=== PATIENT | female | born 1940 | race Caucasian/White ===

== ENCOUNTER 2020-08-20 01:55 | Observation (INO) ==
[2020-08-20 02:38] LABS: Basophils # 0.1 K/mcL (0.0-0.2); Basophils % 0.2 %; Eosinophils % 0.1 %; Hematocrit 37.3 % (35.3-44.9); Hemoglobin 12.2 g/dL (11.5-15.4); Immature Granulocytes % 1.2 % (0-4); Lymphocytes # 5.3 K/mcL (0.6-4.6); Lymphocytes % 24.5 %; Mean Corpuscular HGB Conc 32.7 g/dL (31.6-35.5); Mean Corpuscular Hemoglobin 31.6 pg (28.0-33.3); Mean Corpuscular Volume 96.6 fL (83.0-100.0); Mean Platelet Volume 10.1 fL (9.4-12.4); Monocytes # 2.2 K/mcL (0.0-1.3); Monocytes % 10.1 %; Neutrophils # 13.7 K/mcL (1.6-8.9); Platelet Count 175 K/mcL (140-400); Red Blood Count 3.86 M/mcL (3.82-4.97); Red Cell Distribution Width 12.5 % (11.5-14.5); Segmented Neutrophils % 63.9 %; White Blood Count 21.5 K/mcL (4.3-11.1)
[2020-08-20 02:58] LABS: Alanine Aminotransferase 67 Units/L (7-52); Albumin 4.1 g/dL (3.5-5.7); Albumin/Globulin Ratio 1.3 (1.1-2.2); Alkaline Phosphatase 121 Units/L (34-104); Aspartate Amino Transferase 27 Units/L (13-39); BUN/Creatinine Ratio 31 (6-26); Bilirubin,Total 0.4 mg/dL (0.3-1.0); Blood Urea Nitrogen 35 mg/dL (8-23); Calcium 9.8 mg/dL (8.6-10.3); Carbon Dioxide 25 mEq/L (23-29); Chloride 104 mEq/L (98-107); Globulin 3.1 g/dL (2.4-3.5); Glucose 92 mg/dL (70-105); Osmolality,Calculated 290 (280-300); Potassium 4.6 mEq/L (3.5-5.1); Sodium 136 mEq/L (136-145); Total Protein 7.2 g/dL (6.4-8.9); Troponin I < 0.03 ng/mL (< 0.04); eGFR For African Americans 56 (> 60); eGFR For Non-African Americans 46 (> 60)
[2020-08-20 02:58] LABS: Bacteria,Urine Few per hpf (None-Few); Bilirubin,Urine Negative (Negative); Blood,Urine Negative (Negative); Clarity,Urine Turbid (Clear); Color,Urine Yellow (Yellow); Glucose,Urine (UA) Normal (Normal); Hyaline Casts,Urine Many per lpf (None Seen); Ketones,Urine Negative (Negative); Leukocyte Esterase,Urine Trace (Negative); Mucus,Urine Few per lpf (None-Few); Nitrite,Urine Negative (Negative); PH,Urine 5.5 pH Units (5.0-8.0); Protein,Urine Trace mg/dL (Neg-Trace); RBC,Urine 0-3 per hpf (0-3); Specific Gravity,Urine > 1.030 (1.010-1.025); Squamous Epithelial Cell,Urine Many per hpf (None-Few)
[2020-08-20] MEDS ORDERED: *HR* HYDROcodone/Acet 5/325 mg TABLET PO ONE (03:18)
[2020-08-20] MEDS ORDERED: Ondansetron 4 MG/2 ML VIAL IVP PRN (05:26)
[2020-08-20] MEDS ORDERED: Naloxone 0.4 MG/ML INJ IVP PRN ×2 (05:26→05:30)
[2020-08-20] MEDS ORDERED: Ringers Solution, Lactated 1,000 ML IVC SCH (05:30)
[2020-08-20] MEDS ORDERED: Acetaminophen 325 MG TABLET PO PRN (05:30)
[2020-08-20] MEDS ORDERED: *HR* LORazepam 0.5 MG TABLET PO PRN (07:56)
[2020-08-20] MEDS: carvediloL 6.25 MG TABLET PO SCH ×2 (09:26→16:36)
[2020-08-20] MEDS: Spironolactone 25 MG TABLET PO SCH (09:26)
[2020-08-20] MEDS: *HR* HYDROcodone/Acet 5/325 mg TABLET PO PRN ×2 (10:50→21:19)
[2020-08-20] MEDS: *HR* OxyCODONE Immed Rel 5 MG TABLET PO PRN (17:04)
[2020-08-20] MEDS: Nicotine 2 MG GUM BC PRN (18:29)
[2020-08-21 01:21] LABS: Hemoglobin 11.3 g/dL (11.5-15.4); Mean Corpuscular Volume 98.9 fL (83.0-100.0); Mean Platelet Volume 10.2 fL (9.4-12.4)
[2020-08-21 01:22] LABS: Hematocrit 34.4 % (35.3-44.9); Immature Platelets 4.1 % (1.1-6.1); Mean Corpuscular HGB Conc 32.8 g/dL (31.6-35.5); Mean Corpuscular Hemoglobin 32.5 pg (28.0-33.3); Red Blood Count 3.48 M/mcL (3.82-4.97); Red Cell Distribution Width 12.6 % (11.5-14.5); White Blood Count 9.9 K/mcL (4.3-11.1)
[2020-08-21 01:42] LABS: BUN/Creatinine Ratio 29 (6-26); Blood Urea Nitrogen 25 mg/dL (8-23); Calcium 8.9 mg/dL (8.6-10.3); Carbon Dioxide 22 mEq/L (23-29); Chloride 106 mEq/L (98-107); Glucose 100 mg/dL (70-105); Osmolality,Calculated 280 (280-300); Potassium 4.2 mEq/L (3.5-5.1); Sodium 133 mEq/L (136-145); eGFR For African Americans > 60 (> 60); eGFR For Non-African Americans > 60 (> 60)
[2020-08-21] MEDS: carvediloL 6.25 MG TABLET PO SCH ×2 (08:47→17:03)
[2020-08-21] MEDS: *HR* OxyCODONE Immed Rel 5 MG TABLET PO PRN (08:47)
[2020-08-21] MEDS: Spironolactone 25 MG TABLET PO SCH (08:48)
[2020-08-21] MEDS: Nicotine 2 MG GUM BC PRN (15:07)
[2020-08-21] MEDS: *HR* HYDROcodone/Acet 5/325 mg TABLET PO PRN ×2 (17:00→21:28)
[2020-08-21] MEDS: *HR* Heparin 5,000 UNIT/ML VIAL SQ SCH (17:01)
[2020-08-22 06:56] VITALS: BP 130/76
[2020-08-22] MEDS: *HR* Heparin 5,000 UNIT/ML VIAL SQ SCH (06:56)
[2020-08-22] MEDS: Spironolactone 25 MG TABLET PO SCH (07:53)
[2020-08-22] MEDS: carvediloL 6.25 MG TABLET PO SCH (07:54)
[2020-08-22 08:49] LABS: BUN/Creatinine Ratio 22 (6-26); Blood Urea Nitrogen 19 mg/dL (8-23); Calcium 9.3 mg/dL (8.6-10.3); Carbon Dioxide 27 mEq/L (23-29); Chloride 105 mEq/L (98-107); Glucose 100 mg/dL (70-105); Osmolality,Calculated 288 (280-300); Potassium 4.2 mEq/L (3.5-5.1); Sodium 138 mEq/L (136-145); eGFR For African Americans > 60 (> 60); eGFR For Non-African Americans > 60 (> 60)
[2020-08-22] MEDS: *HR* OxyCODONE Immed Rel 5 MG TABLET PO PRN (12:17)
== END 2020-08-22 12:38 | disposition home or self-care (01) ==
LOC: EMEROOARM 01:55 → 3BNU 01:55
PROVIDERS: ADMIT Family Medicine; ATTEND Family Medicine